=== PATIENT | female | born 1945 | race Two or more races ===

== ENCOUNTER 2018-12-18 09:06 | Outpatient (CLI) | payer OTHER | END 2018-12-18 09:11 | disposition home or self-care (01) | LOC: SONOGRAMA 09:06 | DX: K30 Functional dyspepsia (principal); R10.13 Epigastric pain ==

== ENCOUNTER 2019-01-08 09:34 | Outpatient (CLI) | payer OTHER | END 2019-01-08 09:35 | disposition home or self-care (01) | LOC: RAD 09:34 | DX: D64.89 Other specified anemias (principal); D68.8 Other specified coagulation defects; I10 Essential (primary) hypertension ==

== ENCOUNTER 2019-01-10 08:48 | Outpatient (CLI) | payer OTHER | END 2019-01-10 08:53 | disposition home or self-care (01) | LOC: EKG 08:48 | DX: D64.89 Other specified anemias (principal); D68.8 Other specified coagulation defects; I10 Essential (primary) hypertension ==

== ENCOUNTER 2019-02-25 08:00 | Outpatient (CLI) | payer OTHER | END 2019-02-25 08:06 | disposition home or self-care (01) | LOC: LAB 08:00 | DX: D64.89 Other specified anemias (principal); D68.8 Other specified coagulation defects; I10 Essential (primary) hypertension ==

== ENCOUNTER → 2019-03-03 | Outpatient (CLI) | payer OTHER | END | disposition home or self-care (01) | LOC: RAD 501 09:26 → RAD 09:26 | DX: M46.96 Unspecified inflammatory spondylopathy, lumbar region (principal); Z86.73 Personal history of transient ischemic attack (TIA), and cerebral infarction without residual deficits ==

== ENCOUNTER 2020-01-25 07:53 | Outpatient (CLI) | payer OTHER | END 2020-01-25 08:00 | disposition home or self-care (01) | LOC: SONOGRAMA 07:53 → MAMO-SONO 13:45 | DX: N81.11 Cystocele, midline (principal) ==

== ENCOUNTER 2021-04-02 14:19 | Outpatient (CLI) | payer OTHER | END 2021-04-02 15:21 | disposition home or self-care (01) | LOC: OFIC 805 14:19 | PROVIDERS: ATTEND Otolaryngology Otology & Neurotology | DX: H60.8X2 Other otitis externa, left ear (principal); H92.02 Otalgia, left ear; H61.22 Impacted cerumen, left ear ==

== ENCOUNTER 2021-04-16 14:38 | Outpatient (CLI) | payer OTHER | END 2021-04-16 15:51 | disposition home or self-care (01) | LOC: OFIC 805 14:38 | PROVIDERS: ATTEND Otolaryngology Otology & Neurotology | DX: H90.3 Sensorineural hearing loss, bilateral (principal); H60.8X2 Other otitis externa, left ear; H92.02 Otalgia, left ear; H93.13 Tinnitus, bilateral; H61.22 Impacted cerumen, left ear ==

== ENCOUNTER → 2021-04-26 | Outpatient (CLI) | payer OTHER | END | disposition home or self-care (01) | LOC: OFIC 805 04-24 08:30 → RAD 08:49 | PROVIDERS: ATTEND Specialist | DX: M54.5 Low back pain (principal); M16.9 Osteoarthritis of hip, unspecified ==

== ENCOUNTER 2021-05-15 08:00 | Outpatient (CLI) | payer OTHER | END 2021-05-15 08:30 | disposition home or self-care (01) | LOC: PPH VACUNA 08:00 | DX: Z23 Encounter for immunization (principal) ==

== ENCOUNTER 2021-06-05 08:00 | Outpatient (CLI) | payer OTHER | END 2021-06-05 08:30 | disposition home or self-care (01) | LOC: PPH VACUNA 08:00 | DX: Z23 Encounter for immunization (principal) ==

== ENCOUNTER 2022-02-07 11:45 | Outpatient (CLI) | payer OTHER | END 2022-02-07 11:50 | disposition home or self-care (01) | LOC: RAD 11:45 | PROVIDERS: ATTEND Internal Medicine Rheumatology | DX: M47.817 Spondylosis without myelopathy or radiculopathy, lumbosacral region (principal); M16.0 Bilateral primary osteoarthritis of hip; M19.071 Primary osteoarthritis, right ankle and foot; M19.072 Primary osteoarthritis, left ankle and foot ==

== ENCOUNTER 2022-02-21 07:32 | Outpatient (CLI) | payer OTHER | END 2022-02-21 07:33 | disposition home or self-care (01) | LOC: SONOGRAMA 07:32 | PROVIDERS: ATTEND Internal Medicine Gastroenterology | DX: R10.9 Unspecified abdominal pain (principal) ==

== ENCOUNTER 2022-02-21 12:36 | Outpatient (CLI) | payer OTHER | END 2022-02-21 13:30 | disposition home or self-care (01) | LOC: NUCLEAR 12:36 | PROVIDERS: ATTEND Internal Medicine Rheumatology | DX: M81.0 Age-related osteoporosis without current pathological fracture (principal) ==

== ENCOUNTER → 2025-09-21 | Outpatient (CLI) | payer OTHER | END | disposition home or self-care (01) | LOC: SONOGRAMA 10:58 | DX: M75.101 Unspecified rotator cuff tear or rupture of right shoulder, not specified as traumatic (principal); M25.511 Pain in right shoulder ==